=== PATIENT | female | born 1935 | race Caucasian/White ===

== ENCOUNTER 2017-08-11 11:44 | Emergency (ER) | payer OTHER, MEDICAID ==
[~2017-08-11] VITALS: Ht 137.2 cm; Wt 64.4 kg
[~2017-08-11 11:44] MED LIST: AMLODIPINE BESYL5 M1 PO; APAP500 MG GT; ARICEPT10 MG PO; BACO TOP; BENADRYL ALLERG25 M1 PO; BENAZEPRIL HYDR40 M1 PO; BG MC; CARAFATE1 GM PO; FERG PO; FLA500 PO; FLUOXETINE20 M2 PO; GLU500 PO; HIBICLENS118 ML TOP; LAC PO; LEVAQUIN750 MG PO; MEDDP PO; METFORMIN500 M1 PO; NAPROSYN500 MG PO; PROTONIX40 MG PO
[2017-08-11 13:46] LABS: CALCIUM 8.3 mg/dL (8.5-10.1); CARBON DIOXIDE 27.7 mmol/L (21-32); CHLORIDE SERUM 105 mmol/L (98-107); CREATININE SERUM 0.9 mg/dL (0.6-1.0); GLUCOSE SERUM 118 mg/dL (74-106); POTASSIUM SERUM 3.5 mmol/L (3.5-5.1); SODIUM SERUM 141 mmol/L (136-145)
[2017-08-11 14:26] VITALS: BP 130/65
== END 2017-08-11 14:26 | disposition home or self-care (01) ==
LOC: ED 11:44
PROVIDERS: Emergency Medicine
DX: R22.0 Localized swelling, mass and lump, head (principal); E11.9 Type 2 diabetes mellitus without complications; I10 Essential (primary) hypertension; J44.9 Chronic obstructive pulmonary disease, unspecified; Z79.84 Long term (current) use of oral hypoglycemic drugs
CPT/HCPCS: J2930; J7613; J7644; Q0163